=== PATIENT | female | born 1955 | race Caucasian/White ===

== ENCOUNTER → 2017-02-27 09:47 | Outpatient (CLI) | payer BC ==
[2016-06-12 09:15] VITALS: BMI 20.4
[~2017-02-27 09:47] MED LIST: ALENDRONATE SOD70 MG PO; DILAUDID2 MG PO; IPRAT-ALBUT 0.5-3 ML UPD; LIPITOR10 MG PO; LOPRESSOR25 MG PO; MACROBID100 MG PO; NORVASC5 MG PO; OMEPRAZOLE20 M1 PO; PHENERGAN25 M1 PO; SYMBICORT 16010.2 GM INH; TESSALON PERLE100 MG PO; ULTRAM50 MG PO; ZOFRAN ODT4 MG/UDTAB PO
== END | disposition home or self-care (01) ==
LOC: D.US 09:47
DX: R60.0 Localized edema (principal); M79.605 Pain in left leg

== ENCOUNTER → 2017-07-24 11:43 | Outpatient (CLI) | payer MEDICAID ==
[2016-06-12 09:15] VITALS: BMI 20.4
== END | disposition home or self-care (01) ==
LOC: D.US 11:43
DX: R60.0 Localized edema (principal)